=== PATIENT | male | born 1945 | race Two or more races ===

== ENCOUNTER 2016-11-07 15:34 | Emergency (ER) | payer OTHER ==
[2016-11-07] MEDS ORDERED: IOPAMIDOL 300 (61%) 150 ML VIAL IV ONE (15:35)
[2016-11-07 16:29] LABS: ABSOLUTE NEUTROPHIL COUNT 6.8 K/mm3 (1.8-7.7); BASO % 0.2 % (0.2-1.0); EOS % 0.3 % (0.9-2.9); HEMATOCRIT 41.8 % (32.0-52.0); HEMOGLOBIN 14.1 gm/l (14.0-18.0); IMM NEUT% 0.4 % (0-1); LYMPH # 1.4 (1.0-4.8); MEAN CELL VOLUME 90.1 fl (80.0-94.0); MEAN CORPUSCULAR HEMOGLOBIN 30.4 pg (27.0-31.0); MEAN CORPUSCULAR HGB CONC 33.7 g/dl (33.0-37.0); MEAN PLATELET VOLUME 12.4 fl (7.4-10.4); MONO # 0.6 (0.0-0.8); MONO % 6.9 % (4-12); NEUT % 76.2 % (43-75); PLATELET COUNT 172 K/mm3 (130-400); RED CELL DISTRIBUTION WIDTH 13.2 % (11.5-14.5)
[2016-11-07 16:38] LABS: CALCIUM 9.6 mg/dL (8.6-10.3)
--- NOTE | 2016-11-07 17:49 | CT ---
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 TECHNIQUE: CT examination of the chest, abdomen and pelvis was obtained following the administration of 1 25 mL Isovue-300 intravenous contrast. FINDINGS: There is no pneumothorax, pulmonary contusion or pleural effusion. There is no evidence of traumatic thoracic aortic injury or mediastinal hematoma. No displaced rib fracture is identified. There is, however, a nondisplaced fracture involving the T8 vertebral body. Only the anterior elements are involved and this extends from the anterior aspect of the vertebral body into the T7-8 disc space. Involvement of the posterior elements is not identified and there is no significant surrounding hematoma. 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 There is no evidence of solid organ injury to the liver, spleen, pancreas or either kidney. The adrenal glands and gallbladder within normal limits. Urinary bladder is unremarkable. There are small fat-containing bilateral hernias, left greater than right. Numerable surgical clips are seen within the pelvis. This is presumably from prostatectomy. There is no significant pelvic lymphadenopathy by size criteria. There is mild colonic diverticulosis without evidence of diverticulitis. There is no free air or free intraperitoneal fluid. 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 Mild facet arthropathy seen within the lower lumbar spine. IMPRESSION: Nondisplaced fracture involving the T8 vertebral body. Posterior element involvement is not visualized therefore this is a stable fracture. No additional acute posttraumatic abnormality is seen within the chest, abdomen or pelvis. Findings were discussed with Dr. Kearney 1742 hours 11/07/2016.
[2016-11-07] MEDS ORDERED: HYDROCODONE/ACETAMINOPHEN 5/325MG TABLET ONE (18:25)
[2016-11-07] MEDS ORDERED: IBUPROFEN 600 MG TABLET ONE (18:25)
== END 2016-11-07 18:56 | disposition home or self-care (01) ==
LOC: ED 15:34
DX: S29.9XXA Unspecified injury of thorax, initial encounter (principal); S22.069A Unspecified fracture of T7-T8 vertebra, initial encounter for closed fracture; W17.89XA Other fall from one level to another, initial encounter; Y93.H2 Activity, gardening and landscaping; Y92.9 Unspecified place or not applicable; Y99.0 Civilian activity done for income or pay
CPT/HCPCS: 85025; 80048; 74177; 71260; 94010; 99285; 99284; A9270 ×2; Q9967